=== PATIENT | male | born 1970 | race Caucasian/White ===

== ENCOUNTER 2017-12-11 18:20 | Outpatient (CLI) | payer BC ==
--- NOTE | 2017-12-11 20:33 | RAD ---
CHEST TWO VIEWS 12/11/17 The heart is normal in size and the lungs are clear. No infiltrate or effusion was seen. The mediasti num appears normal. IMPRESSION: No acute thoracic finding. POS: HOME
== END 2017-12-11 18:21 | disposition home or self-care (01) ==
LOC: BURRAD 18:20
PROVIDERS: ATTEND Family Medicine
DX: Z01.818 Encounter for other preprocedural examination (principal)
CPT/HCPCS: 71046

== ENCOUNTER 2020-11-21 17:31 | Emergency (ER) | payer BC | END 2020-11-21 17:47 | disposition home or self-care (01) | LOC: BURERS 17:31 | DX: T16.2XXA Foreign body in left ear, initial encounter (principal) | CPT/HCPCS: 69200 ==